=== PATIENT | male | born 1955 | race Caucasian/White ===

== ENCOUNTER 2017-02-17 20:51 | Emergency (ER) | payer OTHER ==
[2017-02-17] MEDS ORDERED: NITROGLYCERIN 2% OINTMENT 1 GM PACKET ONE (21:09)
[2017-02-17] MEDS ORDERED: FUROSEMIDE INJ/PF 40 MG/4 ML SDV ONE (21:10)
[2017-02-17] MEDS ORDERED: ENALAPRILAT DIHYDRATE INJ/PF 1.25 MG/1 ML SDV IV ONE (21:16)
[2017-02-17] MEDS ORDERED: IPRATROPIUM/ALBUTEROL 0.5-2.5 MG/3 ML AMPUL NEB ONE (21:24)
[2017-02-17] MEDS ORDERED: NITROGLYCERIN/D5W 50 MG/250 ML RTUINJ IV PRN (21:25)
[2017-02-17 21:26] LABS: ABSOLUTE EOSINOPHILS # (AUTO) 0.6 10^3/uL (0.0-0.6); ABSOLUTE LYMPHOCYTES (AUTO) 1.4 10^3/uL (0.5-4.7); ABSOLUTE MONOCYTES (AUTO) 0.6 10^3/uL (0.1-1.4); BASOPHILS % (AUTO) 0.4 % (0-2); EOSINOPHILS % (AUTO) 5.8 % (0-6); HEMATOCRIT 41.6 % (37.9-51.0); HEMOGLOBIN 14.4 g/dL (13.5-17.0); HGB HCT DIFFERENCE 1.6; LYMPHOCYTES % (AUTO) 14.8 % (13-45); MEAN CORPUSCULAR HEMOGLOBIN 28.7 pg (27.0-33.4); MEAN CORPUSCULAR HGB CONC 34.7 g/dL (32.0-36.0); MEAN CORPUSCULAR VOLUME 83 fl (80-97); MONOCYTES % (AUTO) 5.7 % (3-13); RED BLOOD COUNT 5.03 10^6/uL (4.35-5.55); SEGMENTED NEUTROPHILS % (AUTO) 73.3 % (42-78); WHITE BLOOD COUNT 9.6 10^3/uL (4.0-10.5)
[2017-02-17 21:37] LABS: PROTHROMBIN TIME 12.3 SEC (11.4-15.4)
[2017-02-17 21:40] LABS: ALANINE AMINOTRANSFERASE 39 U/L (21-72); ALBUMIN 3.9 g/dL (3.5-5.0); ALKALINE PHOSPHATASE 94 U/L (38-126); ANION GAP 13 (5-19); ASPARTATE AMINO TRANSFERASE 23 U/L (17-59); BILIRUBIN,DIRECT 0.3 mg/dL (0.0-0.4); BILIRUBIN,TOTAL 0.4 mg/dL (0.2-1.3); BLOOD UREA NITROGEN 25 mg/dL (7-20); CALCIUM 9.9 mg/dL (8.4-10.2); CARBON DIOXIDE 24 mmol/L (22-30); CHLORIDE 106 mmol/L (98-107); CREATININE RESULT 0.93 mg/dL (0.52-1.25); GLUCOSE 150 mg/dL (75-110); POTASSIUM 4.1 mmol/L (3.6-5.0); SODIUM 142.9 mmol/L (137-145); TOTAL PROTEIN 6.7 g/dL (6.3-8.2)
--- NOTE | 2017-02-17 21:47 | RADIOLOGY REPORT (SQ) ---
EXAM DESCRIPTION: CHEST SINGLE VIEW COMPLETED DATE/TIME: 02/17/2017 9:37 pm REASON FOR STUDY: dyspnea COMPARISON: None. EXAM PARAMETERS: NUMBER OF VIEWS: One view. TECHNIQUE: Single frontal radiographic view of the chest acquired. RADIATION DOSE: NA LIMITATIONS: None. FINDINGS: LUNGS AND PLEURA: Vague parenchymal opacities right greater than left. No effusions. MEDIASTINUM AND HILAR STRUCTURES: No masses. Contour normal. HEART AND VASCULAR STRUCTURES: Heart normal in size. Normal vasculature. BONES: No acute findings. HARDWARE: None in the chest. OTHER: No other significant finding. IMPRESSION: Bilateral pneumonitis. TECHNICAL DOCUMENTATION: JOB ID: [id number]
[2017-02-17 22:03] LABS: TROPONIN I 0.191 ng/mL
[2017-02-17 22:10] LABS: THYROID STIMULATING HORMONE 2.04 uIU/mL (0.47-4.68)
--- NOTE | 2017-02-17 22:49 | ER Document Report ---
ED General - General Chief Complaint: Shortness Of Breath Stated Complaint: DIFICULTY BREATHING Time Seen by Provider: 02/17/17 20:59 Mode of Arrival: Medic Information source: Patient, Relative TRAVEL OUTSIDE OF THE [place] IN LAST 30 DAYS: No - HPI Notes: Patient is a 61-year-old white male history of [id number] diabetes and hypertension and significant vascular disease presents emergency department with report that he became significantly distressed related to his dog having respiratory difficulty and performed mouth to snout respirations on the dog to try to revive it and was carrying the dog and his arms for distance when he started having chest pain following by having significant difficulty breathing that gradually progressed and worsened with cough productive of whitish and then slightly pink frothy sputum. No previous history of congestive heart failure, but the patient had carotid endarterectomy in 2002 and cardiac catheterization 2012 showing branch vessel disease and disease in the circumflex. The patient's previous smoker, is not on inhalers. Patient is diaphoretic on arrival by EMS. There is no hypoxia. He 150/98 while in route by EMS. Was hypertensive no nausea or vomiting. Patient usually takes aspirin, but cannot recall taking it this morning. Patient currently was just treated for scabies infection and has applied the Elimite cream with some improvement in his rash. - Related Data Allergies/Adverse Reactions: No Known Allergies Allergy (Unverified 05/03/16 13:45) Past Medical History - General Information source: Patient - Social History Smoking Status: Former Smoker Frequency of alcohol use: None Drug Abuse: None Lives with: Family Family History: CAD - Past Medical History Cardiac Medical History: Reports: Hx Heart Attack, Hx Hypertension Pulmonary Medical History: Denies: Hx Asthma Neurological Medical History: Denies: Hx Cerebrovascular Accident, Hx Seizures GI Medical History: Denies: Hx Hepatitis, Hx Hiatal Hernia, Hx Ulcer Infectious Medical History: Denies: Hx Hepatitis Past Surgical History: Denies: Hx Open Heart Surgery, Hx Pacemaker Review of Systems - Review of Systems Notes: REVIEW OF SYSTEMS: CONSTITUTIONAL : Denies fever, chills, or sweats. Denies recent illness. EENT: Denies eye, ear, throat, or mouth pain or symptoms. Denies nasal or sinus congestion or discharge. Denies throat, tongue, or mouth swelling or difficulty swallowing. CARDIOVASCULAR: Denies palpitations or racing or irregular heart beat. RESPIRATORY: Denies recent cough or cold up until immediate onset of this episode tonight. GASTROINTESTINAL: Denies abdominal pain or distention. Denies nausea, vomiting , or diarrhea. Denies blood in vomitus, stools, or per rectum. Denies black, tarry stools. Denies constipation. GENITOURINARY: Denies difficulty urinating, painful urination, burning, frequency, blood in urine, or discharge. MUSCULOSKELETAL: Denies back or neck pain or stiffness. Denies joint pain or swelling. SKIN: Denies sores. HEMATOLOGIC : Denies easy bruising or bleeding. LYMPHATIC: Denies swollen, enlarged glands. NEUROLOGICAL: Denies confusion or altered mental status. Denies passing out or loss of consciousness. Denies dizziness or lightheadedness. Denies headache. Denies weakness or paralysis or loss of use of either side. Denies problems with gait or speech. Denies sensory loss, numbness, or tingling. Denies seizures. PSYCHIATRIC: Denies anxiety or stress. Denies depression, suicidal ideation, or homicidal ideation. ALL OTHER SYSTEMS REVIEWED AND NEGATIVE. Dictation was performed using [employer] voice recognition software texting back and say she still got her finger Physical Exam - Vital signs Vitals: Resp BP Pulse Ox 26 H 146/122 H 99 02/17/17 20:58 02/17/17 20:58 02/17/17 20:58 - Notes Notes: PHYSICAL EXAMINATION: GENERAL: well-nourished distressed diaphoretic.. HEAD: Atraumatic, normocephalic. EYES: Pupils equal round and reactive to light, extraocular movements intact, sclera anicteric, conjunctiva are normal. ENT: Nares patent, oropharynx clear without exudates. Moist mucous membranes. NECK: Normal range of motion, supple without lymphadenopathy. Previous right carotid endarterectomy scar that is well-healed. Positive for JVD. LUNGS: Breath sounds coarse bilaterally with rhonchi and rales. HEART: Regular rate and rhythm with 1/6 systolic ejection murmur best auscultated over the apex. Mild S3 gallop. ABDOMEN: Soft, nontender, nondistended abdomen. No guarding, no rebound. No masses appreciated. Musculoskeletal: Normal range of motion, 1+ bilateral lower extremity edema. No cyanosis. NEUROLOGICAL: Cranial nerves grossly intact. Normal speech, normal gait. Normal sensory, motor exams PSYCH: Normal mood, normal affect. SKIN: Warm, Dry, normal turgor. Mild dermatitis, could fit for resolving scabies. No obvious abscess. Course - Re-evaluation Re-evalutation: 02/18/17 00:19 EKG #1 as interpreted by me 02/17/17 at 2107 showed normal sinus rhythm heart rate of 91 with incomplete left bundle branch block and repolarization abnormalities. Could not exclude inferior ischemia. There is no old EKG available for comparison. No obvious STEMI noted. Patient immediately was kept upon oxygen and was given Lasix 80 mg IV and 2 inches of Nitropaste while he was being transitioned to a nitroglycerin drip to titrate to keep systolic blood pressure between 110 and 120. Patient was given enalapril 1.25 mg IV. Patient was placed upon BiPAP with further improvement in symptoms. Patient was heme-negative on rectal exam. Patient was started on Heparin. Patient was given aspirin. Discussion was undertaken with the patient and with family and they were in agreement with transfer of the patient to a facility with interventional cardiology capabilities which are not available at this location. No bed was available at [facility]. discussion was undertaken with the [facility] Dr. Gonzales who accepted the patient in transfer. - Vital Signs Vital signs: Temp Pulse Resp BP Pulse Ox 21 H 121/69 98 02/17/17 22:36 02/17/17 23:52 02/17/17 23:52 - Laboratory Result Diagrams: 02/17/17 23:30 02/17/17 21:04 Laboratory results interpreted by me: 02/17/17 02/17/17 02/17/17 21:04 21:04 23:30 WBC 13.0 H RDW 15.0 H 14.9 H Seg Neutrophils % 80.0 H Lymphocytes % 11.2 L Absolute Neutrophils 10.4 H APTT BUN 25 H Glucose 150 H 02/17/17 23:30 WBC RDW Seg Neutrophils % Lymphocytes % Absolute Neutrophils APTT 133.6 H BUN Glucose Critical Care Note - Critical Care Note Total time excluding time spent on procedures (mins): 54 Discharge - Discharge Clinical Impression: Elevated troponin, Unstable angina Pulmonary edema Qualifiers: Chronicity: acute Qualified Code(s): J81.0 - Acute pulmonary edema Chest pain Qualifiers: Chest pain type: unspecified Qualified Code(s): R07.9 - Chest pain, unspecified Condition: Stable Disposition: [facility]
[2017-02-17] MEDS ORDERED: ASPIRIN 81 MG TABLET, CHEWABLE PO ONE (22:58)
[2017-02-17] MEDS ORDERED: HEPARIN SOD (PORCINE) 1,000 UNIT/ML 10 ML VIAL IV ONE (22:59)
[2017-02-17] MEDS ORDERED: HEPARIN SODIUM,PORCINE/D5W 25,000 UNIT/250 ML RTUINJ IV PRN (22:59)
[2017-02-17 23:44] LABS: ABSOLUTE BASOPHILS # (AUTO) 0.1 10^3/uL (0.0-0.2); ABSOLUTE EOSINOPHILS # (AUTO) 0.4 10^3/uL (0.0-0.6); ABSOLUTE LYMPHOCYTES (AUTO) 1.5 10^3/uL (0.5-4.7); ABSOLUTE MONOCYTES (AUTO) 0.6 10^3/uL (0.1-1.4); ABSOLUTE NEUT (AUTO) 10.4 10^3/uL (1.7-8.2); BASOPHILS % (AUTO) 0.8 % (0-2); EOSINOPHILS % (AUTO) 3.1 % (0-6); HEMATOCRIT 40.9 % (37.9-51.0); HEMOGLOBIN 14.1 g/dL (13.5-17.0); HGB HCT DIFFERENCE 1.4; LYMPHOCYTES % (AUTO) 11.2 % (13-45); MEAN CORPUSCULAR HEMOGLOBIN 28.8 pg (27.0-33.4); MEAN CORPUSCULAR HGB CONC 34.5 g/dL (32.0-36.0); MEAN CORPUSCULAR VOLUME 84 fl (80-97); MONOCYTES % (AUTO) 4.9 % (3-13); RED BLOOD COUNT 4.89 10^6/uL (4.35-5.55); RED CELL DISTRIBUTION WIDTH 14.9 % (11.5-14.0)
[2017-02-17 23:48] LABS: PROTHROMBIN TIME 13.5 SEC (11.4-15.4)
[2017-02-17 23:51] LABS: PARTIAL THROMBOPLASTIN TIME 133.6 SEC (23.5-35.8)
[2017-02-18 01:26] VITALS: BP 130/69
--- NOTE | 2017-02-18 01:49 | ER Document Report ---
Doctor's Note Notes: 02/18/17 01:49 The patient has just left with the transport crew. His vital signs were stable and he was pain-free just prior to leaving.
--- NOTE | 2017-02-18 08:06 | EKG REPORT ---
SEVERITY:- ABNORMAL ECG - SINUS RHYTHM PROBABLE LEFT ATRIAL ABNORMALITY PROBABLE INFERIOR INFARCT, AGE INDETERMINATE LATERAL LEADS ARE ALSO INVOLVED : Confirmed by: Sanaz Florian MD 18-Feb-2017 08:05:33
--- NOTE | 2017-02-18 08:06 | EKG REPORT ---
SEVERITY:- ABNORMAL ECG - SINUS RHYTHM PROBABLE LEFT ATRIAL ABNORMALITY BORDERLINE INFERIOR Q WAVES REPOL ABNRM SUGGESTS ISCHEMIA, INFERIOR LEADS : Confirmed by: Sanaz Florian MD 18-Feb-2017 08:05:38
== END 2017-02-18 01:35 | disposition short-term general hospital (02) ==
LOC: ER 20:51
DX: I20.0 Unstable angina (principal); R74.8 Abnormal levels of other serum enzymes; R06.02 Shortness of breath; R06.00 Dyspnea, unspecified; I10 Essential (primary) hypertension; Z79.82 Long term (current) use of aspirin; Z87.891 Personal history of nicotine dependence; I25.2 Old myocardial infarction
CPT/HCPCS: 93005; 94640; 99285; 96375; 96365; 96366; 96368; 36415; 84439; 84443; 85025; 85610; 85730; 82272; 80053; 84484; 83880; 71010; 93010; 94660; J1644 ×2; J1940; J3490 ×2; J7620